=== PATIENT | female | born 1985 | race Caucasian/White ===

== ENCOUNTER 2016-10-14 07:26 | Inpatient (IN) | payer BC ==
[~2016-10-14] VITALS: Ht 160 cm; Wt 95.5 kg
[2016-10-14] MEDS ORDERED: LACTATED RINGER'S 1000ML 1,000 ML IV PRN (08:31)
[2016-10-14 08:58] LABS: MEAN CELL VOLUME 90.1 fL (80-100); MEAN CORPUSCULAR HEMOGLOBIN 31.2 pg (25-34); MEAN CORPUSCULAR HGB CONC 34.6 g/dl (32-36); MEAN PLATELET VOLUME 10.1 fL (7.4-10.4); PLATELET COUNT 197 K/uL (130-400); RED BLOOD COUNT 4.33 M/uL (4.2-5.4); WHITE BLOOD COUNT 8.04 K/uL (4.8-10.8)
[2016-10-14 09:03] VITALS: Ht 160 cm; Wt 95.5 kg
[2016-10-14] MEDS ORDERED: MISOPROSTOL 25 MCG TAB PV ONE (09:15)
--- NOTE | 2016-10-14 09:21 | Progress Note ---
Progress Note Admit Note 31 F P0010 at 39.1 weeks admitted for induction of labor for gestational diabetes on Glyburide. GBS negative. cervix 60/-3/posterior. EFW 7.5-8 lbs. Cord blood donation planned. T Cat 1. Cytotec 25 mcg placed in vagina for cervical ripening.
[2016-10-14] MEDS ORDERED: RANI150T3 PO (12:24)
[2016-10-14] MEDS ORDERED: CHOL1000 PO (12:24)
[2016-10-14] MEDS ORDERED: PRENTAB26 PO (12:24)
[2016-10-14] MEDS ORDERED: GLYB5TAB8 PO (12:24)
[2016-10-14] MEDS ORDERED: FERR1TAB39 PO (12:24)
[2016-10-14] MEDS ORDERED: PANT40TA PO (12:24)
--- NOTE | 2016-10-14 20:53 | Progress Note ---
Progress Note Cervix /-3 contractions every 2-3min starting to get more painful FHT Cat 1
[2016-10-14] MEDS ORDERED: ACETAMINOPHEN 500 MG TAB PO PRN (21:00)
[2016-10-15] MEDS ORDERED: MISOPROSTOL 25 MCG TAB ONE (03:48)
--- NOTE | 2016-10-15 03:52 | Progress Note ---
Progress Note Cytotec 25 mcg placed in vagina FHT Cat 1
[2016-10-15] MEDS ORDERED: MISOPROSTOL 25 MCG TAB PV ONE (04:00)
[2016-10-15] MEDS ORDERED: DINOPROSTONE 10 MG INSERT PV ONE (08:00)
[2016-10-15] MEDS: BUTORPHANOL TARTRATE 1 MG/ML VIAL IV PRN ×2 (15:02→17:04)
[2016-10-15] MEDS ORDERED: BUPIVACAINE 0.25% 30 ML VIAL ONE ×2 (19:09→23:41)
[2016-10-15] MEDS ORDERED: EpHEDrine SULFATE INJ 50 MG/ML AMP ONE (19:09)
[2016-10-15] MEDS ORDERED: FENTANYL 2MCG/ML ROPIV 1.25MG/ML 100ML BAG EPI ONE (19:09)
[2016-10-15] MEDS ORDERED: FENTANYL CITRATE INJ 50 MCG/1 ML 2 ML VIAL ONE (19:10)
[2016-10-15] MEDS ORDERED: NALOXONE HCL INJ 1 MG in SODIUM CHLORIDE 0.9% 1000ML 1,000 ML IV PRN (20:29)
[2016-10-15] MEDS ORDERED: LACTATED RINGER'S 1000ML 500 ML IV PRN ×2 (20:29→20:35)
[2016-10-15] MEDS ORDERED: ONDANSETRON INJ 2 MG/ML 2 ML VIAL IV PRN (20:30)
[2016-10-15] MEDS ORDERED: EpHEDrine SULFATE INJ 50 MG/ML AMP IV PRN (20:30)
[2016-10-15] MEDS ORDERED: NALBUPHINE HCL INJ 10 MG/ML AMP IV PRN (20:30)
[2016-10-15] MEDS ORDERED: DiphenhydrAMINE HCL 50 MG/ML VIAL IV PRN (20:30)
[2016-10-15] MEDS ORDERED: NALOXONE HCL INJ 0.4 MG/1 ML VIAL/CARP IV PRN (20:30)
[2016-10-15] MEDS: OXYTOCIN 30 UNITS/500ML NSS IV PRN (21:15)
[2016-10-15] MEDS: LACTATED RINGER'S 1000ML 1,000 ML IV SCH (22:36)
[2016-10-15] MEDS: FENTANYL 2MCG/ML ROPIV 1.25MG/ML 100ML BAG EPI PRN ×2 (22:44→23:49)
[2016-10-16] VITALS (8 sets, daily range): BP systolic 92–101; BP diastolic 54–61; PULSE 82–99; TEMP 37–37.4; O2SAT 93–95
[2016-10-16] MEDS ORDERED: TERBUTALINE SULFATE 1 MG/ML VIAL SQ ONE (00:45)
[2016-10-16] MEDS ORDERED: SODIUM CHLORIDE 0.9% 1000ML 1,000 ML IV SCH (01:02)
[2016-10-16] MEDS ORDERED: DEXTROSE 50% 50 ML SYR IV PRN (01:15)
[2016-10-16] MEDS ORDERED: PHARMACY GLYCEMIC MGMT CONSULT PRN (01:15)
[2016-10-16] MEDS: DEXTROSE 5% 1000ML 1,000 ML IV SCH ×6 (01:51→12:16)
[2016-10-16] MEDS: INSULIN REGULAR 250 UNITS in SODIUM CHLORIDE 0.9% 250ML 250 ML IV PRN ×7 (02:04→12:18)
[2016-10-16] MEDS: LACTATED RINGER'S 1000ML 1,000 ML IV SCH ×4 (02:07→10:23)
[2016-10-16] MEDS: FENTANYL 2MCG/ML ROPIV 1.25MG/ML 100ML BAG EPI PRN ×3 (02:23→08:07)
[2016-10-16] MEDS ORDERED: ACETAMINOPHEN 325 MG TAB PO ONE (02:45)
[2016-10-16] MEDS ORDERED: NURSING VERBAL MED ORDER ONE (02:45)
[2016-10-16] MEDS ORDERED: LACTATED RINGER'S 1000ML 500 ML IV PRN ×2 (04:01→14:04)
[2016-10-16] MEDS ORDERED: OXYTOCIN 30 UNITS/500ML NSS IV PRN (04:15)
[2016-10-16] MEDS: OXYTOCIN 30 UNITS/500ML NSS IV PRN (04:35)
--- NOTE | 2016-10-16 08:22 | Progress Note ---
Progress Note cervix /-1 T Cat 1
--- NOTE | 2016-10-16 08:50 | Progress Note ---
Progress Note cervix /-1 T Cat 2 repositioned on side
[2016-10-16] MEDS ORDERED: LACTATED RINGER'S 1000ML 1,000 ML IV ONE (13:39)
[2016-10-16] MEDS ORDERED: CITRIC ACID/SODIUM CITRATE 15 ML UDC ONE (13:42)
[2016-10-16] MEDS ORDERED: CITRIC ACID/SODIUM CITRATE 15 ML UDC PO ONE (13:45)
--- NOTE | 2016-10-16 13:48 | Progress Note ---
Progress Note Patient examined re-examined after prolonged bradycardia that came back to normal baseline after repositioning. No change in cervix after several hours while on oxytocin. Cervix remains 9/100/-1. FHT Cat 2. Will proceed with C- section due to failure to progress and non-reassuring hearta tones. Patient and family in agreement. Consents obtained.
[2016-10-16] MEDS ORDERED: CEFAZOLIN IV 2,000 MG in DEXTROSE 5% 50ML 50 ML IV SCH (14:00)
[2016-10-16] MEDS ORDERED: NALOXONE HCL INJ 0.08 MG in SYRINGE 1.8 ML IV PRN (14:04)
[2016-10-16] MEDS ORDERED: NALOXONE HCL INJ 1 MG in SODIUM CHLORIDE 0.9% 1000ML 1,000 ML IV PRN ×4 (14:04)
[2016-10-16] MEDS ORDERED: SODIUM CHLORIDE 0.9% 1000ML 1,000 ML IV PRN (14:04)
[2016-10-16] MEDS ORDERED: PROMETHAZINE HCL INJ 12.5 MG in SODIUM CHLORIDE 0.9% 50ML 50 ML IV PRN (14:15)
[2016-10-16] MEDS ORDERED: EpHEDrine SULFATE INJ 50 MG/ML AMP IV PRN ×2 (14:15)
[2016-10-16] MEDS ORDERED: PHENYLEPHRINE 100MCG/ML 5ML SYR IV PRN (14:15)
[2016-10-16] MEDS ORDERED: ATROPINE SULFATE 0.1 MG/ML 5ML SYR IV PRN (14:15)
[2016-10-16] MEDS ORDERED: NALBUPHINE HCL INJ 10 MG/ML AMP IV PRN (14:15)
[2016-10-16] MEDS ORDERED: MEPERIDINE HCL 25 MG/ML CARP IV PRN (14:15)
[2016-10-16] MEDS ORDERED: NO NARCOTICS OR SEDATIVES SCH (14:15)
[2016-10-16] MEDS ORDERED: MoRPHine SULFATE PF 1 MG/ML 10 ML AMP/VIAL EPI PRN (14:15)
[2016-10-16] MEDS ORDERED: PROMETHAZINE HCL INJ 25 MG in SODIUM CHLORIDE 0.9% 50ML 50 ML IV PRN (14:15)
[2016-10-16] MEDS ORDERED: DiphenhydrAMINE HCL 50 MG/ML VIAL IV PRN (14:15)
[2016-10-16] MEDS ORDERED: KETOROLAC TROMETHAMINE 30 MG/ML VIAL IV. PRN (14:15)
[2016-10-16] MEDS ORDERED: NALOXONE HCL 0.4 MG/1 ML VIAL/CARP IV PRN (14:15)
[2016-10-16] MEDS ORDERED: ONDANSETRON INJ 2 MG/ML 2 ML VIAL IV PRN ×2 (14:15)
[2016-10-16] MEDS ORDERED: MoRPHine SULFATE PF 1 MG/ML 10 ML AMP/VIAL ONE (14:23)
[2016-10-16] MEDS ORDERED: METOCLOPRAMIDE HCL INJ 5 MG/ML 2 ML VIAL ONE (14:47)
[2016-10-16] MEDS ORDERED: LIDOCAINE/EPINEPHRINE 2% 1:200,000 20 ML SDV ONE (14:47)
[2016-10-16] MEDS ORDERED: PROPOFOL IV EMULSION 10 MG/ML 20 ML VIAL IV ONE (14:47)
[2016-10-16] MEDS ORDERED: OXYTOCIN INJ 10 UNITS/ML VIAL ONE (14:47)
[2016-10-16] MEDS ORDERED: SODIUM CHLORIDE 0.9% INJ 10 ML VIAL ONE (14:47)
[2016-10-16] MEDS ORDERED: ONDANSETRON INJ 2 MG/ML 2 ML VIAL ONE (14:47)
--- NOTE | 2016-10-16 14:59 | Pharmacy Progress Note ---
Glycemic Control Intl Consult Date of Service Oct 16, 2016. Scope Glycemic Pharmacist consulted for glycemic control and to write orders per [facility] inpatient glycemic control protocol Objective Weight (Kilograms): 95.500 Accuchecks BSG (last 24hrs): Test 10/15/16 19:41 10/15/16 20:33 10/15/16 20:34 10/15/16 21:38 Bedside Glucose 96 mg/dl (70-90) 118 mg/dl (70-90) 110 mg/dl (70-90) 117 mg/dl (70-90) Test 10/15/16 22:34 10/15/16 23:34 10/16/16 00:38 10/16/16 01:55 Bedside Glucose 109 mg/dl (70-90) 136 mg/dl (70-90) 130 mg/dl (70-90) 131 mg/dl (70-90) Test 10/16/16 02:47 10/16/16 03:54 10/16/16 04:35 10/16/16 05:44 Bedside Glucose 128 mg/dl (70-90) 120 mg/dl (70-90) 113 mg/dl (70-90) 117 mg/dl (70-90) Test 10/16/16 06:38 10/16/16 07:42 10/16/16 08:51 10/16/16 10:02 Bedside Glucose 118 mg/dl (70-90) 119 mg/dl (70-90) 105 mg/dl (70-90) 119 mg/dl (70-90) Test 10/16/16 10:59 10/16/16 12:14 Bedside Glucose 107 mg/dl (70-90) 99 mg/dl (70-90) HbA1c Not indicated/reliable in d/t changes in RBC turnover rate Assessment & Plan ASSESSMENT: * 31yo gestational diabetic admitted for induction. * Initiated on IV insulin infusion & fluids per protocol * Goal range for BSG is 70-110mg/dl to prevent hypoglycemia * Pt delivered 10/16/16 PM --> post- orders should be initiated. PLAN FOR INPATIENT GLYCEMIC CONTROL: * May d/c IV insulin infusion post-delivery of placenta * Monitor BSG x 1 in the recovery room post-operatively () * Continue to monitor BSG Q6hrs/ACHS x 24hrs then QAM * BSG goal range =160mg/dl after delivery of placenta; call the provider or pharmacist (if consulted) if above this goal range * Pharmacy is signing off of glycemic consult now that pt delivered * Please note that the plan above was derived based on current level of insulin resistance and hospital stress. These recommendations are appropriate for inpatient admission only. Plan of care upon discharge will need to be reassessed to avoid potential outpatient hypo/hyperglycemia. Thank you.
[2016-10-16] MEDS ORDERED: ARISTA ABSORBABLE HEMOSTAT 3GM TOP ONE (15:27)
[2016-10-16] MEDS ORDERED: LACTATED RINGER'S 1000ML 1,000 ML IV SCH (15:29)
[2016-10-16] MEDS ORDERED: SEPRAFILM ADHESION BARR (4) 3X2.5IN TOP ONE (15:29)
[2016-10-16] MEDS ORDERED: MAGNESIUM HYDROXIDE SUSP 30 ML UDC PO PRN (15:30)
[2016-10-16] MEDS ORDERED: DIPHTHERIA/TETANUS/PERTUSSIS 0.5 ML SYR/VIAL IM. ONE (15:30)
[2016-10-16] MEDS ORDERED: SENNA 8.6 MG TAB PO PRN (15:30)
[2016-10-16] MEDS ORDERED: HYDROCORTISONE ACETATE 25 MG SUPP PR PRN (15:30)
[2016-10-16] MEDS ORDERED: MEASLES, MUMPS & RUBELLA VIRUS VIAL SQ. ONE (15:30)
[2016-10-16] MEDS ORDERED: LANOLIN OINT EXT PRN ×2 (15:30)
[2016-10-16] MEDS ORDERED: BENZOCAINE 20% AER SPR 82.5 GM CAN EXT PRN (15:30)
[2016-10-16] MEDS ORDERED: SUPERCREAM 0.870 % 15GM JAR EXT PRN (15:30)
--- NOTE | 2016-10-16 15:34 | History & Physical Bridge Note ---
H&P Re-Evaluation Bridge Note: I have examined the patient, reviewed the History & Physical and in the interval since the performance of the History & Physical I have noted the following changes of clinical significance: No changes noted
--- NOTE | 2016-10-16 15:35 | [facility] Post Operative Brief Note ---
Immediate Operative Summary Operative Date Oct 16, 2016. Pre-Operative Diagnosis Term - Failure to Progress Post-Operative Diagnosis same as above with delivery of living female child at 1436 Procedure(s) Performed Primary Low Transverse Caesarean Section Surgeon Dr. Chaim Beckford Patient Transport Orderly Surgeon(s) Dr. Zander Pope Estimated Blood Loss 600 Findings live female. Apgars 8/9 direct OP with CANx1 Specimens a. placenta- exam b. cord blood donation c. cord blood specimen Drains Arguello Anesthesia epidural Disposition L&D
--- NOTE | 2016-10-16 16:10 | OPERATIVE REPORT ---
DATE OF OPERATION: 10/16/2016 PREOPERATIVE DIAGNOSIS: Failure to progress, nonreassuring heart tones. POSTOPERATIVE DIAGNOSIS: Same. PROCEDURE: Primary section, low segment transverse. SURGEON: Dr. Beckford. LAVATORY ATTENDANT: Dr. Pope. ANESTHESIA: Epidural. CLINICAL HISTORY: The patient is a 31-year-old female para 0-0-1-0 at 39 weeks and 3 days, who was admitted for induction of labor for gestational diabetes. The patient progressed to 9 cm, had a nonreassuring heart tone with bradycardic episodes periodically and due to lack of progress and persistent variables, the patient was brought back to the OR for a section. Consents were signed. A timeout was called prior to the start of the procedure and antibiotics were given preop. DESCRIPTION OF PROCEDURE: Under satisfactory epidural anesthesia, the patient was prepped and draped in usual sterile fashion. A low Pfannenstiel incision was made, entering into the abdominal cavity in successive layers without difficulty. Upon entering into the lower uterine cavity, the uterus was noted to be dextrorotated. Bladder flap was then developed with sharp dissection, a low segment transverse incision over the lower uterine segment was made and the incision was widened in the AP diameter. The amniotic fluid was clear. The infant was found to be in the direct OP position with a nuchal cord x1 that was found at delivery. The was then delivered from the vertex presentation with the aid of fundal pressure. The cord was reduced at the time of delivery. The baby was suctioned a live female, Apgars were 8 and 9. weight was pending. Cord blood collection was obtained after the cord was cleansed, this was then submitted as a separate specimen and then following this, cord blood was obtained and then the placenta was spontaneously delivered manually and intact. Uterus was then exteriorized. Ring forceps were than used to grab both angles, the contents of the uterine cavity were cleansed of all debris. Tubes and ovaries bilaterally were found to be within normal limits. The uterus was closed in double layer closure with 0 Vicryl suture in a continuous interlocking fashion followed by a second-imbricating suture of 0 Vicryl suture. Initial sponge, needle and instrument count were found to be correct. Contents of the uterus were irrigated to clear. The uterus was then placed back into the normal anatomical position. The lower uterine segment was inspected. No active bleeding was noted. There were some small areas of membranes that was controlled with a cautery and then the Maria G was then used on bladder flap. Following this, Seprafilm was then used to coat the lower uterine segment in the midline of the uterus. The fascia was then reapproximated from both ends using 0 Vicryl suture in a continuous fashion from both sides. The subcuticular layer was then irrigated to clear. Bleeders cauterized, 3-0 plain suture was then used to close the subQ, followed by 4-0 Monocryl subcuticular for the skin. Final sponge, needle and instrument count were found to be correct. The Arguello was blood tinged. The patient was then moved to the recovery room on a stretcher in the supine position in stable condition. I attest to the content of the Intraoperative Record and any orders documented therein. Any exceptions are noted below. ABBE
--- NOTE | 2016-10-16 17:57 | Anesthesiology Progress Note ---
Anesthesia Post Op Note Date & Time Oct 16, 2016 at 17:57 Notes Mental Status: alert / awake / arousable, participated in evaluation Pt Amnestic to Procedure: Yes Nausea / Vomiting: adequately controlled Pain: adequately controlled Airway Patency, RR, SpO2: stable & adequate BP & HR: stable & adequate Hydration State: stable & adequate Anesthetic Complications: no major complications apparent
[2016-10-16] MEDS: MEPERIDINE HCL 25 MG/ML CARP IV PRN (18:51)
[2016-10-16] MEDS: OXYTOCIN INJ 20 UNITS in LACTATED RINGER'S 1000ML 1,000 ML IV SCH (19:02)
[2016-10-16] MEDS: SIMETHICONE 80 MG CHEW PO SCH ×2 (20:00→20:36)
[2016-10-16] MEDS: DOCUSATE SODIUM 100 MG CAP PO SCH (20:36)
[2016-10-16] MEDS: KETOROLAC TROMETHAMINE 30 MG/ML VIAL IV. PRN (21:45)
[2016-10-17] VITALS (11 sets, daily range): BP systolic 87–97; BP diastolic 55–64; PULSE 88–106; TEMP 36.4–36.9; O2SAT 94–96
[2016-10-17] MEDS: MEPERIDINE HCL 25 MG/ML CARP IV PRN ×2 (00:42→02:42)
[2016-10-17] MEDS: OXYTOCIN INJ 20 UNITS in LACTATED RINGER'S 1000ML 1,000 ML IV SCH (02:38)
[2016-10-17] MEDS: KETOROLAC TROMETHAMINE 30 MG/ML VIAL IV. PRN (05:35)
[2016-10-17 06:57] LABS: BASO % 0.1 %; BASO ABS # 0.01 K/uL (0-0.2); COMPLETE YES; EOS % 0.4 %; IG% 0.5 %; LYMPH % 5.8 %; LYMPH ABS # 0.75 K/uL (1.2-3.4); MEAN CELL VOLUME 88.6 fL (80-100); MEAN CORPUSCULAR HEMOGLOBIN 31.1 pg (25-34); MEAN CORPUSCULAR HGB CONC 35.2 g/dl (32-36); MEAN PLATELET VOLUME 9.3 fL (7.4-10.4); NEUT % 87.2 %; PLATELET COUNT 158 K/uL (130-400); WHITE BLOOD COUNT 12.94 K/uL (4.8-10.8)
[2016-10-17] MEDS ORDERED: DC INTRASPINAL MORPHINE SCH (07:00)
[2016-10-17] MEDS ORDERED: MEPERIDINE HCL 75 MG/ML CARP IV PRN (07:01)
[2016-10-17] MEDS ORDERED: MEPERIDINE HCL 50 MG/ML CARP IV PRN (07:01)
[2016-10-17] MEDS ORDERED: OXYCODONE/ACETAMINOPHEN 5-325 TAB PO PRN (07:01)
[2016-10-17] MEDS ORDERED: ONDANSETRON INJ 2 MG/ML 2 ML VIAL IV PRN (07:01)
[2016-10-17] MEDS ORDERED: DiphenhydrAMINE HCL 50 MG/ML VIAL IV PRN (07:01)
[2016-10-17] MEDS ORDERED: KETOROLAC TROMETHAMINE 30 MG/ML VIAL IV. PRN (07:01)
--- NOTE | 2016-10-17 08:03 | OB/GYN Progress Note ---
MANAGER IMAGING Progress Note Date of Service: Oct 17, 2016. Patient is seen and examined. She feels well, no complaints. Pain is under control with meds. Not OOB yet Tolerating crackers and liquids with out N&V Flatus + BM neg Bleeding is minimal No fever/ chills/ CP/ SOB/ N&V/ Leg pain Breast feeding without problems Date Time Temp Pulse Resp B/P Pulse Ox O2 Delivery O2 Flow Rate FiO2 10/17/16 06:30 18 96 10/17/16 05:30 18 95 10/17/16 04:30 16 94 10/17/16 03:30 18 95 10/17/16 03:30 36.9 88 18 93/60 95 Room Air 10/17/16 02:30 18 95 10/17/16 01:30 18 94 10/17/16 00:30 16 94 10/16/16 23:30 37.0 99 18 92/59 95 Room Air 10/16/16 23:30 95 Room Air 10/16/16 23:25 18 95 10/16/16 22:30 16 93 10/16/16 21:30 20 94 10/16/16 20:30 16 93 10/16/16 19:30 37.4 98 16 97/61 95 Room Air 10/16/16 19:30 16 95 10/16/16 18:30 37.0 94 16 97/60 93 Room Air 10/16/16 18:30 16 93 10/16/16 17:30 37.1 82 18 101/54 94 Room Air 10/16/16 17:30 18 94 10/16/16 17:30 94 Room Air I & O 10/16/16 10/16/16 10/17/16 15:59 23:59 07:59 Intake Total 1194 ml 900 ml Output Total 250 ml 450 ml Balance 944 ml 450 ml Last 24 Hours Test 10/16/16 08:51 10/16/16 10:02 10/16/16 10:59 10/16/16 12:14 Bedside Glucose 105 mg/dl 119 mg/dl 107 mg/dl 99 mg/dl Test 10/17/16 06:37 White Blood Count 12.94 K/uL Red Blood Count 3.50 M/uL Hemoglobin 10.9 g/dL Hematocrit 31.0 % Mean Corpuscular Volume 88.6 fL Mean Corpuscular Hemoglobin 31.1 pg Mean Corpuscular Hemoglobin Concent 35.2 g/dl Platelet Count 158 K/uL Mean Platelet Volume 9.3 fL Neutrophils (%) (Auto) 87.2 % Lymphocytes (%) (Auto) 5.8 % Monocytes (%) (Auto) 6.0 % Eosinophils (%) (Auto) 0.4 % Basophils (%) (Auto) 0.1 % Neutrophils # (Auto) 11.30 K/uL Lymphocytes # (Auto) 0.75 K/uL Monocytes # (Auto) 0.77 K/uL Eosinophils # (Auto) 0.05 K/uL Basophils # (Auto) 0.01 K/uL RDW Standard Deviation 46.8 fL RDW Coefficient of Variation 14.4 % Immature Granulocyte % (Auto) 0.5 % Immature Granulocyte # (Auto) 0.06 K/uL PE: General: Alert, orientedx3, NAD CVS: S1S2 RRR Lungs; CTAB Abd: soft, NT, fundus firm, below Umbilicus Dressing: Clean, dry, intact Perineum intact, Lochia rubra minimal Ext; NT, no edema AP: 31 yo s/p C Section, pod# 1 VSS Afebrile doing well Continue routine postop care Encourage ambulation, PO intake All questions were answered
[2016-10-17] MEDS: FERROUS SULFATE 325 MG TAB PO SCH (08:28)
[2016-10-17] MEDS: DOCUSATE SODIUM 100 MG CAP PO SCH ×2 (08:29→21:36)
[2016-10-17] MEDS: PRENATAL VITAMIN TAB PO SCH (08:29)
[2016-10-17] MEDS: SIMETHICONE 80 MG CHEW PO SCH ×4 (08:30→21:36)
[2016-10-17] MEDS: OXYCODONE/ACETAMINOPHEN 5-325 TAB PO PRN ×4 (08:31→21:37)
[2016-10-17] MEDS: PANTOprazole SOD 40 MG TAB PO SCH (10:51)
[2016-10-17] MEDS: IBUPROFEN 600 MG TAB PO PRN ×3 (12:52→21:37)
[2016-10-17] MEDS ORDERED: BISACODYL 5 MG TABEC PO ONE (22:00)
[2016-10-18] MEDS: IBUPROFEN 600 MG TAB PO PRN ×2 (05:17→13:22)
[2016-10-18] MEDS: OXYCODONE/ACETAMINOPHEN 5-325 TAB PO PRN ×2 (05:18→13:22)
[2016-10-18] MEDS ORDERED: BISACODYL 10 MG SUPP PR PRN (06:00)
[2016-10-18 08:45] VITALS: BP 103/70; PULSE 93; TEMP 36.5; O2SAT 98
[2016-10-18] MEDS: DOCUSATE SODIUM 100 MG CAP PO SCH (09:29)
[2016-10-18] MEDS: PRENATAL VITAMIN TAB PO SCH (09:29)
[2016-10-18] MEDS: FERROUS SULFATE 325 MG TAB PO SCH (09:29)
[2016-10-18] MEDS: SIMETHICONE 80 MG CHEW PO SCH (09:30)
[2016-10-18] MEDS: PANTOprazole SOD 40 MG TAB PO SCH (09:30)
[2016-10-18] MEDS ORDERED: ACET-749 PO (09:36)
[2016-10-18] MEDS ORDERED: MTR600X PO (09:36)
--- NOTE | 2016-10-18 09:38 | Discharge Instructions ---
Discharge Instructions Admission Reason for Admission: Induction Discharge Discharge Diagnosis / Problem: term delivered Discharge Goals Goal(s): Routine recovery after Activity Recommendations Activity Limitations: as noted below Lifting Limitations: no more than 10 pounds Exercise/Sports Limitations: until after follow-up appointment May Resume Sexual Activity: after follow-up appointment Shower/Bathe: no limitations Driving or Machine Use: . Current Hospital Diet Patient's current hospital diet: Regular OB Diet Discharge Diet Recommended Diet: Regular OB Diet Fluid Restriction: None Procedures Procedures Performed: Primary Low Transverse Caesarean Section Pending Studies Studies pending at discharge: no Medical Emergencies . Who to Call and When: Medical Emergencies: If at any time you feel your situation is an emergency, please call 911 immediately. . Non-Emergent Contact Non-Emergency issues call your: Primary Care Provider . . "Provider Documentation" section prepared by Chaim Beckford. VTE Core Measure Inpt VTE Proph given/why not?: Treatment not indicated
--- NOTE | 2016-10-18 09:42 | Surgery Progress Note ---
Surgery Progress Note Date of Service Oct 18, 2016. Subjective Post OP Day: 2 + ambulating, + bowel movement, + diet, + feeling well, + flatus, + pain controlled Objective Vital Signs: Date Time Temp Pulse Resp B/P Pulse Ox O2 Delivery O2 Flow Rate FiO2 10/17/16 23:25 Room Air 10/17/16 23:25 36.8 96 20 94/60 Room Air 10/17/16 16:45 Room Air 10/17/16 16:45 36.9 89 16 94/62 Room Air 10/17/16 11:10 36.4 99 16 97/64 96 Room Air Abdomen: non tender, non distended, soft Incision(s): clean, dry, intact Extremities: non-tender, normal inspection, no pedal edema, no calf tenderness Assessment & Plan regular diet
[2016-10-18 12:46] VITALS: BP_DIAS 70; PULSE 93; TEMP 36.5
--- NOTE | 2016-10-25 15:19 | DISCHARGE SUMMARY ---
REASON FOR ADMISSION AND HOSPITAL COURSE: The patient is a 31-year-old female 1, para 0 admitted for gestational diabetes and induction of labor. The patient has had no prior medical problem. She was on glyburide. HOSPITAL COURSE: The patient underwent an induction of labor with Cervidil and Cytotec. She subsequently did not progress in labor and required a section. She progressed to 9 cm with nonreassuring heart tones. section was done under epidural anesthesia delivering a live baby with 8 and 9 Apgars. The patient had an uneventful post-hospital course and did well in the hospital and was discharged home in stable condition. Home going instructions were given. Condition on discharge is stable. Regular diet on discharge oxycodone and Motrin for pain and patient to be followed up in the office in 1 week for a followup incision check.
--- NOTE | 2016-10-25 15:22 | HISTORY & PHYSICAL EXAMINATION ---
DATE OF ADMISSION: 10/14/2016 REASON FOR ADMISSION: Induction of labor for gestational diabetes. HISTORY OF PRESENT ILLNESS: The patient is a 31-year-old female 1, para 0 who presents for induction of labor for gestational diabetes. On admission, the patient received Cervidil for cervical ripening. PAST MEDICAL HISTORY: Significant for infertility in the past and gestational diabetes. MEDICATIONS: Include glyburide 2.5 mg p.o. daily and vitamins. PAST SURGICAL HISTORY: No past surgical history. MEDICATIONS: vitamins and glyburide as reported. ALLERGIES: No known allergies. PHYSICAL EXAMINATION: HEENT: Within normal limits. LUNGS: Clear to auscultation. COR: Regular rate and rhythm. ABDOMEN: Soft, nontender. ASSESSMENT: Term with gestational diabetes for induction.
== END 2016-10-18 14:30 | disposition home or self-care (01) | DRG 766 ==
LOC: C.LD 07:26 → C.OBG 10-16 17:30
PROVIDERS: ADMIT Obstetrics & Gynecology; ATTEND Obstetrics & Gynecology
PROC: 3E0E7GC Introduction of Other Therapeutic Substance into Products of Conception, Via Natural or Artificial Opening (ICD-10-PCS; 2016-10-15)
PROC: 10D00Z1 Extraction of Products of Conception, Low, Open Approach (ICD-10-PCS; principal; 2016-10-16 13:53)
DX: O76 Abnormality in fetal heart rate and rhythm complicating labor and delivery (principal); O24.425 Gestational diabetes mellitus in childbirth, controlled by oral hypoglycemic drugs; O69.81X0 Labor and delivery complicated by cord around neck, without compression, not applicable or unspecified; Z3A.38 38 weeks gestation of pregnancy; O66.40 Failed trial of labor, unspecified; Z37.0 Single live birth

== ENCOUNTER 2019-08-03 05:40 | Inpatient (IN) ==
--- NOTE | 2019-07-16 09:32 | PAT Medication Instructions ---
Medication Instructions Date of Service July 16, 2019 Home Medications acetaminophen [Tylenol] 650 mg PO Q6H PRN 07/14/19 [History Confirmed 07/14/19] glyburide 2.5 mg PO BID 07/14/19 [History Confirmed 07/14/19] omeprazole 20 mg PO DAILY PRN 07/14/19 [History Confirmed 07/14/19] pantoprazole 40 mg PO QAM 07/14/19 [History Confirmed 07/14/19] prenat 115-iron [id number]-[id number] 1 tab PO HS 07/14/19 [History Confirmed 07/14/19] DO NOT take the morning of surgery glyburide 2.5 mg PO BID 07/14/19 [History Confirmed 07/14/19] Take morning of surgery With a small sip of water, OTHERWISE NOTHING TO EAT OR DRINK AFTER MIDNIGHT: acetaminophen [Tylenol] 650 mg PO Q6H PRN (okay to take up to 4 hours prior to surgery if needed) omeprazole 20 mg PO DAILY PRN (if needed) pantoprazole 40 mg PO QAM 07/14/19 [History Confirmed 07/14/19] Take evening before surgery acetaminophen [Tylenol] 650 mg PO Q6H PRN (if needed) glyburide 2.5 mg PO BID 07/14/19 [History Confirmed 07/14/19] omeprazole 20 mg PO DAILY PRN (if needed) prenat 115-iron [id number]-[id number]-afg 1 tab PO HS 07/14/19 [History Confirmed 07/14/19] Other Notes If you have any questions please call us at [phone] or [phone] or [phone] or [phone]
--- NOTE | 2019-07-19 13:13 | Anesthesiology Consultation ---
Date of Service July 19, 2019 Assessment & Plan (1) Encounter for pre-operative examination: Preop labs: per OB, no labs to be done at [facility] Chart Review Chart Review: Acceptable Risk for Surgery (pending labs AM DOS) and Patient seen in Pre Admission Testing Teaching & Discussion Pre-Anesthesia Teaching/Discussion Notes: Instructed NPO after midnight before surgery,except medications with 15 cc of water. Medication instructions provided according to the [facility] guidelines. History Surgery Operation Date: 08/03/19 07:30 Proposed Procedures p Section in LD - Beka Colon MD s Post Tubal Ligation Labor & Deliv - Beka Colon MD Height/Weight Height: 5 ft 3 in Weight: 96.8 kg Allergies Allergy/AdvReac Type Severity Reaction Status Date / Time No Known Allergies Allergy Verified 07/14/19 12:33 Medications Home Medications Medication Instructions Recorded Confirmed Last Taken acetaminophen [Tylenol] 650 mg PO Q6H PRN 07/14/19 07/14/19 Unknown glyburide 2.5 mg PO BID 07/14/19 07/14/19 Unknown omeprazole 20 mg PO DAILY PRN 07/14/19 07/14/19 Unknown pantoprazole 40 mg PO QAM 07/14/19 07/14/19 Unknown prenat 115-iron irb-nogcr-dff 1 tab PO HS 07/14/19 07/14/19 Unknown Past Medical History Medical History GERD (gastroesophageal reflux disease) occasional Gestational diabetes oral meds Hiatal hernia Kidney stones Migraine hx Exercise / Class Metabolic Activity II 4-5 Yardwork/Stairs/Walk up hill (one flight of stairs (no chest pain, rare sob)) Past Family History Family History Mother Family history of reaction to anesthesia AGITATED Grandmother (Maternal) Family history of diabetes mellitus Past Surgical History Surgical History History of section c/s (non-reassuring FHR/failure to progress): 10/16/16: CSE (dosed) x 1 at L3/L[address] [facility] History of esophagogastroduodenoscopy (EGD) History of tonsillectomy Past Anesthesia History No Hx of Anesthesia Complications (except PONV x 1 episode) Mother: "crazy" with anesthesia emergence History of PONV History of PONV (x1 episode) and Hx of Motion Sickness (occasional) Social History Smoking Status: Never smoker Do You Dip or Chew Tobacco: No Hx Alcohol Use: No Hx Substance Use: No Review of Systems Occasional reflux. Patient denies chest pain, shortness of breath, cough, wheezing, palpitations. Physical Exam Vital Signs VITALS BP 107/68 (bp typically low to normal range per patient) P 97 TEMP 99.2 SP02 97%RA RESP 16 PHYSICAL Full neck and c-spine range of motion. Full TMJ range of motion. TMD 4 finger breaths Mallampati Score 3 Dentition: intact Lungs: clear throughout to auscultation Cardiac: regular rate and rhythm, no murmurs noted Spine: normal Extremities: no edema
[2019-08-03] MEDS ORDERED: LACTATED RINGER'S 1,000 ML IV SCH ×3 (05:45→09:45)
[2019-08-03] MEDS ORDERED: CITRIC ACID/SODIUM CITRATE 15 ML UDC PO SCH ×2 (06:00)
[2019-08-03] MEDS ORDERED: CEFAZOLIN 2,000 MG in SYRINGE 0 ML IV SCH (06:00)
[2019-08-03 06:05] LABS: Basophils # (auto) 0.01 K/uL (0-0.2); Basophils % (auto) 0.1 %; Eosinophils # (auto) 0.07 K/uL (0-0.5); Eosinophils % (auto) 0.9 %; Hematocrit (blood only) 37.2 % (37-47); Hemoglobin 12.1 g/dL (12.0-16.0); Immature Granulocytes % (auto) 1.3 %; Lymphocytes # (auto) 1.87 K/uL (1.2-3.4); Lymphocytes % (auto) 23.9 %; Mean Corpuscular Hemoglobin 27.4 pg (25-34); Mean Corpuscular Volume 84.4 fL (80-100); Mean Platelet Volume 10.3 fL (7.4-10.4); Monocytes # (auto) 0.57 K/uL (0.11-0.59); Monocytes % (auto) 7.3 %; Neutrophils % (auto) 66.5 %; Platelet Count 220 K/uL (130-400); RDW Coefficient of Variation 15.1 % (11.5-14.5); RDW Standard Deviation 46.2 fL (36.4-46.3); Red Blood Count 4.41 M/uL (4.2-5.4); White Blood Count 7.82 K/uL (4.8-10.8)
[2019-08-03 06:06] LABS: Mean Corpuscular Hgb Conc 32.5 g/dL (32-36)
[2019-08-03] MEDS ORDERED: fentaNYL citrate 100 MCG/2 ML VIAL ONE (06:53)
[2019-08-03] MEDS ORDERED: MoRPHine SULFATE PF 1 MG/ML 10 ML AMP/VIAL ONE (06:53)
[2019-08-03] MEDS ORDERED: OXYTOCIN 10 UNITS/ML VIAL ONE ×3 (06:57→08:52)
--- NOTE | 2019-08-03 07:33 | History & Physical Bridge Note ---
Date of Service August 03, 2019 History & Physical Bridge Note I have examined the patient, reviewed the History & Physical and in the interval since the performance of the History & Physical I have noted the following changes of clinical significance: no changes noted
[2019-08-03] MEDS: LACTATED RINGER'S 1,000 ML IV SCH ×2 (07:49→19:57)
[2019-08-03] MEDS ORDERED: ePHEDrine sulfate 50 MG/ML SYR ONE (07:57)
[2019-08-03] MEDS ORDERED: PHENYLEPHRINE 100MCG/ML 5ML SYR ONE (07:57)
[2019-08-03] MEDS ORDERED: ONDANSETRON INJ 2 MG/ML 2 ML VIAL ONE (07:57)
[2019-08-03] MEDS ORDERED: NALOXONE HCL 0.08 MG in SYRINGE 1.8 ML IV PRN (08:22)
[2019-08-03] MEDS ORDERED: LACTATED RINGER'S 500 ML IV PRN (08:22)
[2019-08-03] MEDS ORDERED: HYDROmorphone INJ 0.5 MG/0.5 ML SYR IV PRN (08:22)
[2019-08-03] MEDS ORDERED: ONDANSETRON INJ 2 MG/ML 2 ML VIAL IV PRN (08:22)
[2019-08-03] MEDS ORDERED: MoRPHine SULFATE PF 1 MG/ML 10 ML AMP/VIAL INT SPINAL ONE (08:22)
[2019-08-03] MEDS ORDERED: ePHEDrine sulfate 50 MG/ML AMP IV PRN (08:22)
[2019-08-03] MEDS ORDERED: DiphenhydrAMINE HCL 50 MG/ML VIAL IV PRN (08:22)
[2019-08-03] MEDS ORDERED: MoRPHine SULFATE 2 MG/ML CARP IV PRN (08:22)
[2019-08-03] MEDS ORDERED: NALOXONE HCL 0.4 MG/1 ML VIAL/CARP IV PRN (08:22)
[2019-08-03] MEDS ORDERED: NALBUPHINE HCL INJ 10 MG/ML AMP IV PRN (08:22)
[2019-08-03] MEDS ORDERED: NALOXONE HCL 1 MG in SODIUM CHLORIDE 0.9% 1000ML 1,000 ML IV PRN (08:22)
[2019-08-03] MEDS ORDERED: SODIUM CHLORIDE 0.9% 1000ML 1,000 ML IV SCH (08:30)
[2019-08-03] MEDS ORDERED: NO NARCOTICS OR SEDATIVES SCH (08:30)
[2019-08-03] MEDS ORDERED: METHYLERGONOVINE MALEATE 0.2 MG/ML AMP ONE (08:46)
[2019-08-03] MEDS ORDERED: MAGNESIUM HYDROXIDE SUSP 30 ML UDC PO PRN (09:32)
[2019-08-03] MEDS ORDERED: HYDROCORTISONE ACETATE 25 MG SUPP PR PRN (09:32)
[2019-08-03] MEDS ORDERED: BENZOCAINE 20% AER SPR 82.5 GM CAN EXT PRN (09:32)
[2019-08-03] MEDS ORDERED: SENNA 8.6 MG TAB PO PRN (09:32)
[2019-08-03] MEDS ORDERED: DIPHTHERIA/TETANUS/PERTUSSIS 0.5 ML SYR/VIAL IM ONE (09:32)
[2019-08-03] MEDS ORDERED: SUPERCREAM 0.870% 15 GM JAR EXT PRN (09:32)
--- NOTE | 2019-08-03 09:37 | Post Operative Brief Note ---
Immediate Post Op Note v1 Date of Surgery August 03, 2019 Pre & Post Diagnosis Operation Date: 08/03/19 07:30 Pre-Op Diagnosis: PREVIOUS SECTION, DESIRES STERILIZATION Post-Op Diagnosis: lower uterine transverse delivery of live female at 0815 bilateral tubal ligation I identified the patient and participated in the time-out.: Yes Procedure Operation Date: 08/03/19 07:30 Actual Procedures p Section (Not Applicable) - Beka Colon MD Surgeon Beka Colon MD Piano Tuner krystian lucero Estimated Blood Loss 700 Findings Consistent with Post-Op Diagnosis Drains Arguello Catheter (inserted without difficulty for immediate return of clear yellow urine, anesthesia to monitor)
--- NOTE | 2019-08-03 09:44 | Anesthesiology Progress Note ---
Date of Service August 03, 2019 Anesthesia Post Procedure Vital Signs Vital Signs: Temp Pulse Resp BP Pulse Ox 08/03/19 09:38 61 99 08/03/19 09:33 63 121/57 L 98 08/03/19 05:57 36.8 C 18 08/03/19 05:49 94 H 119/55 L Transfer of Care Handoff Completed per policy Notes Mental Status: alert / awake / arousable and participated in evaluation Patient Amnestic to Procedure: No Nausea / Vomiting: adequately controlled Pain: adequately controlled Airway Patency, RR, SpO2: stable & adequate BP & HR: stable & adequate Hydration State: stable & adequate Neuraxial Anesthesia: was administered and sensory block is resolving Anesthetic Complications: no major complications apparent and Pt Satisfied with anesthetic care
[2019-08-03] MEDS ORDERED: OXYTOCIN 20 UNITS in LACTATED RINGER'S 1,000 ML IV SCH (09:45)
[2019-08-03] MEDS ORDERED: miSOPROStoL 200 MCG TAB ONE (10:05)
[2019-08-03] MEDS: KETOROLAC 30 MG/ML VIAL IV PRN ×2 (10:29→21:18)
--- NOTE | 2019-08-03 10:59 | Operative Report ---
DATE OF OPERATION: 08/03/2019 INDICATION FOR SURGERY: This is a 33-year-old with prior section, presently at term, who wishes to have a repeat with bilateral tubal ligation. PREOPERATIVE DIAGNOSES: 1. at term. 2. Prior section, wishes to have repeat section. 3. Undesired fertility. POSTOPERATIVE DIAGNOSES: 1. at term. 2. Prior section, wishes to have repeat section. 3. Undesired fertility. PROCEDURES: 1. Repeat . 2. Bilateral tubal ligation. SURGEON: Beka Colon MD. INTERNAL COMBUSTION ENGINEER: Ivonne Scott. FINDINGS: Live infant in occiput anterior presentation. Pelvic exam is unremarkable. There was some adhesion of the omentum to the fascia upon entry into the abdomen. ESTIMATED BLOOD LOSS: 700 mL. INTRAVENOUS FLUIDS: 1500 mL. URINE OUTPUT: 200 mL of clear urine at the end of procedure. PATHOLOGY: Left and right fallopian tube as well as placenta. COMPLICATIONS: None. DRAINS: Arguello catheter. DISPOSITION: Stable to recovery room. DESCRIPTION OF PROCEDURE: The patient was taken to the operating room where she was prepped and draped in normal sterile fashion in dorsal lithotomy position. A Pfannenstiel incision was made with a scalpel through the old scar and carried down to the fascia. The fascia was incised in the midline and extended laterally on both sides. The peritoneum was identified. There was omentum attached to the peritoneum, which was carefully dissected off. Once inside the abdomen, an Jabier retractor was placed in the abdomen for visualization. Vesicouterine peritoneum was sharply dissected off the lower segment of the uterus. A low transverse incision was made in the uterus and extended laterally on both sides. Infant's head is delivered with rest of the body. Cord was clamped and cut and handed over to the waiting pediatric team. Cord blood was obtained. Placenta is manually removed. The uterus was closed in 2 layers using Vicryl. There was good hemostasis at the end of closure. The left and right fallopian tubes were identified and followed to the fimbriated end by both surgeon and respiratory assistant. Modified [place] tubal ligation procedure was performed. Both left and right fallopian tubes were sent to pathology for pathological analysis. There was good hemostasis at the end of the procedure. Uterus was returned into the abdominal cavity. Inspection of the uterine incision site showed good hemostasis. The Jabier retractor was removed. Peritoneum was reapproximated with plain suture. Fascia was closed in a running fashion with PDS suture. SubQ space was irrigated and approximated with plain suture. Skin was closed with delmar. A MELLY dressing was placed on the abdominal incision. All instruments were removed from the abdomen and accounted for x2 including sponges, needles and retractors. Baby and mother are doing well in recovery. I attest to the content of the Intraoperative Record and any orders documented therein. Any exception s are noted below.
[2019-08-03] MEDS: SIMETHICONE 80 MG CHEW PO SCH ×3 (13:16→21:13)
[2019-08-03] MEDS ORDERED: OXYTOCIN 10 UNITS/ML VIAL IM ONE (15:46)
[2019-08-03] MEDS: DOCUSATE SODIUM 100 MG CAP PO SCH (21:13)
[2019-08-04] MEDS ORDERED: DC INTRASPINAL MORPHINE ONE (02:22)
[2019-08-04] MEDS ORDERED: DiphenhydrAMINE HCL 50 MG/ML VIAL IV PRN (02:22)
[2019-08-04] MEDS ORDERED: ONDANSETRON INJ 2 MG/ML 2 ML VIAL IV PRN (02:22)
[2019-08-04] MEDS ORDERED: PROMETHAZINE HCL 25 MG in SODIUM CHLORIDE 0.9% 50 ML IV PRN (02:22)
[2019-08-04] MEDS: OXYCODONE/ACETAMINOPHEN 5mg/325mg TAB PO PRN ×5 (03:12→23:07)
[2019-08-04] MEDS: SIMETHICONE 80 MG CHEW PO SCH ×5 (03:12→20:37)
[2019-08-04 06:36] LABS: Eosinophils # (auto) 0.08 K/uL (0-0.5); Eosinophils % (auto) 0.9 %; Hematocrit (blood only) 30.4 % (37-47); Hemoglobin 9.9 g/dL (12.0-16.0); Immature Granulocytes # (auto) 0.06 K/uL (0.00-0.02); Immature Granulocytes % (auto) 0.7 %; Lymphocytes # (auto) 1.14 K/uL (1.2-3.4); Lymphocytes % (auto) 13.4 %; Mean Corpuscular Hemoglobin 27.7 pg (25-34); Mean Corpuscular Hgb Conc 32.6 g/dL (32-36); Mean Corpuscular Volume 84.9 fL (80-100); Monocytes # (auto) 0.63 K/uL (0.11-0.59); Monocytes % (auto) 7.4 %; Neutrophils # (auto) 6.57 K/uL (1.4-6.5); Neutrophils % (auto) 77.6 %; Platelet Count 193 K/uL (130-400); RDW Coefficient of Variation 15.1 % (11.5-14.5); Red Blood Count 3.58 M/uL (4.2-5.4); White Blood Count 8.48 K/uL (4.8-10.8)
[2019-08-04] MEDS: PRENATAL VITAMIN 1 TAB PO SCH (08:41)
[2019-08-04] MEDS: DOCUSATE SODIUM 100 MG CAP PO SCH ×2 (08:41→20:37)
[2019-08-04] MEDS: FERROUS SULFATE 325 MG TAB PO SCH (08:42)
--- NOTE | 2019-08-04 08:53 | Obstetrical Progress Note ---
Date of Service August 04, 2019 Physical Exam Physical Exam: abdomen soft and non tender bowel sounds hypoactive vaginal bleeding scant hgb 9.9 no calf tenderness ambulating well Results & Data Vital Signs (Past 12 Hours) Vital Signs Temp Pulse Pulse Resp BP Pulse Ox 08/04/19 03:10 36.4 C L 90 16 118/60 97 08/04/19 02:30 16 98 08/04/19 02:18 16 98 08/04/19 01:05 14 95 08/04/19 00:00 16 95 08/03/19 23:15 37 C 80 16 105/61 95 08/03/19 22:00 20 97 08/03/19 21:39 20 96
--- NOTE | 2019-08-04 11:46 | Anesthesiology Progress Note ---
Date of Service August 04, 2019 Anesthesia Post Procedure Vital Signs Vital Signs: Temp Pulse Pulse Resp BP Pulse Ox 08/04/19 07:25 37.2 C 93 H 16 96/61 L 96 08/04/19 03:10 36.4 C L 90 16 118/60 97 08/04/19 02:30 16 98 08/04/19 02:18 16 98 08/04/19 01:05 14 95 08/04/19 00:00 16 95 08/03/19 23:15 37 C 80 16 105/61 95 08/03/19 22:00 20 97 08/03/19 21:39 20 96 08/03/19 20:05 37.4 C 96 H 20 105/61 96 08/03/19 19:00 18 95 08/03/19 18:04 16 98 08/03/19 17:05 16 97 08/03/19 16:07 16 100 08/03/19 15:06 36.6 C 68 16 115/74 98 08/03/19 14:01 16 100 08/03/19 13:03 16 99 08/03/19 12:10 16 100 Pain Intensity Lower Abdomen: Pain Intensity: 3 Transfer of Care Handoff Completed per policy Notes Mental Status: alert / awake / arousable Patient Amnestic to Procedure: Yes Nausea / Vomiting: adequately controlled Pain: adequately controlled Airway Patency, RR, SpO2: stable & adequate BP & HR: stable & adequate Hydration State: stable & adequate Neuraxial Anesthesia: was administered and sensory block is resolving Anesthetic Complications: no major complications apparent
[2019-08-04] MEDS: IBUPROFEN 600 MG TAB PO PRN ×2 (13:01→23:07)
[2019-08-04] MEDS ORDERED: bisacodyL 10 MG SUPP PR ONE (13:04)
[2019-08-04] MEDS ORDERED: bisacodyL 5 MG TABEC PO SCH (20:00)
[2019-08-05 06:35] LABS: Hematocrit (blood only) 29.4 % (37-47); Hemoglobin 9.5 g/dL (12.0-16.0)
[2019-08-05] MEDS: FERROUS SULFATE 325 MG TAB PO SCH (08:50)
[2019-08-05] MEDS: OXYCODONE/ACETAMINOPHEN 5mg/325mg TAB PO PRN ×2 (08:50→12:56)
[2019-08-05] MEDS: SIMETHICONE 80 MG CHEW PO SCH ×2 (08:50→12:56)
[2019-08-05] MEDS: DOCUSATE SODIUM 100 MG CAP PO SCH (08:50)
[2019-08-05] MEDS: PRENATAL VITAMIN 1 TAB PO SCH (08:50)
[2019-08-05] MEDS: IBUPROFEN 600 MG TAB PO PRN (08:51)
[2019-08-05] MEDS ORDERED: bisacodyL 10 MG SUPP PR PRN (09:33)
--- NOTE | 2019-08-05 11:03 | Obstetrical Progress Note ---
Date of Service August 05, 2019 Subjective Patient is seen and examined. She feels well, no complaints. Likes to be discharged Pain is under control with oral meds. Ambulating without dizziness Voiding without difficulty Tolerating regular diet with out N&V Flatus + BM + Bleeding is minimal No fever/ chills/ CP/ SOB/ N&V/ Leg pain Breast feeding without problems Vital Signs Temp Pulse Pulse Resp BP Pulse Ox 08/05/19 07:50 37.1 C 80 17 111/69 95 08/04/19 23:45 37.1 C 84 16 115/72 95 08/04/19 19:30 37.2 C 97 H 18 103/65 95 08/04/19 17:17 37.2 C 83 16 112/72 Lab Results 08/03/19 08/03/19 08/03/19 Range/Units 05:52 05:52 06:20 WBC 7.82 (4.8-10.8) K/uL RBC 4.41 (4.2-5.4) M/uL Hgb 12.1 (12.0-16.0) g/dL Hct 37.2 (37-47) % MCV 84.4 (80-100) fL MCH 27.4 (25-34) pg MCHC 32.5 (32-36) g/dL RDW Std Deviation 46.2 (36.4-46.3) fL RDW Coeff of Kristen 15.1 H (11.5-14.5) % Plt Count 220 (130-400) K/uL MPV 10.3 (7.4-10.4) fL Immature Gran % (Auto) 1.3 % Neut % (Auto) 66.5 % Lymph % (Auto) 23.9 % [place] % (Auto) 7.3 % Eos % (Auto) 0.9 % Baso % (Auto) 0.1 % Immature Gran # (Auto) 0.10 H (0.00-0.02) K/uL Neut # (Auto) 5.20 (1.4-6.5) K/uL Lymph # (Auto) 1.87 (1.2-3.4) K/uL [place] # (Auto) 0.57 (0.11-0.59) K/uL Eos # (Auto) 0.07 (0-0.5) K/uL Baso # (Auto) 0.01 (0-0.2) K/uL Blood Type Cancelled A Positive Antibody Screen Cancelled NEGATIVE 08/04/19 08/05/19 Range/Units 06:00 06:23 WBC 8.48 (4.8-10.8) K/uL RBC 3.58 L (4.2-5.4) M/uL Hgb 9.9 L 9.5 L (12.0-16.0) g/dL Hct 30.4 L 29.4 L (37-47) % MCV 84.9 (80-100) fL MCH 27.7 (25-34) pg MCHC 32.6 (32-36) g/dL RDW Std Deviation 47.0 H (36.4-46.3) fL RDW Coeff of Kristen 15.1 H (11.5-14.5) % Plt Count 193 (130-400) K/uL MPV 10.0 (7.4-10.4) fL Immature Gran % (Auto) 0.7 % Neut % (Auto) 77.6 % Lymph % (Auto) 13.4 % [place] % (Auto) 7.4 % Eos % (Auto) 0.9 % Baso % (Auto) 0.0 % Immature Gran # (Auto) 0.06 H (0.00-0.02) K/uL Neut # (Auto) 6.57 H (1.4-6.5) K/uL Lymph # (Auto) 1.14 L (1.2-3.4) K/uL [place] # (Auto) 0.63 H (0.11-0.59) K/uL Eos # (Auto) 0.08 (0-0.5) K/uL Baso # (Auto) 0.00 (0-0.2) K/uL Blood Type Antibody Screen PE: General: Alert, orientedx3, NAD CVS: S1S2 RRR Lungs; CTAB Abd: soft, NT, ND, BS+, fundus firm, below Umbilicus Incision/ Dressing: Clean, dry, intact Perineum intact, Lochia rubra minimal Ext; NT, 1+/1+ edema, homans sign neg/ neg AP: 33 yo s/p C Section, pod# 2 VSS Afebrile doing well Desires d/c today Continue routine postop care Encourage ambulation, PO intake Discussed when to call All questions were answered D/C home , f/u in office Results & Data Vital Signs (Past 12 Hours) Vital Signs Temp Pulse Pulse Resp BP Pulse Ox 08/05/19 07:50 37.1 C 80 17 111/69 95 08/04/19 23:45 37.1 C 84 16 115/72 95
== END 2019-08-05 14:45 | disposition home or self-care (01) | DRG 785 ==
LOC: 4S1 05:40 → EDSTATUS 07:30 → 4S2 13:02